=== PATIENT | female | born 1950 | race Hispanic/Latino ===

== ENCOUNTER 2016-08-18 07:08 | Day surgery (SDC) | payer MEDICARE ==
[2016-08-11 11:29] VITALS: BMI 27.1
[2016-08-18 07:34] LABS: ADD MANUAL DIFF? NO
[2016-08-18 07:40] LABS: BASO # 0.03 K/mm3 (0.0-2.0); BASO % 0.5 % (0.0-3.0); EOS # 0.2 (0.0-0.7); EOS % 3.3 % (1.5-5.0); GRAN # 4.25 (1.4-6.5); HEMATOCRIT 35.1 % (36.0-48.0); LYMPH # 0.9 (1.2-3.4); LYMPH % 14.7 % (22.0-35.0); MEAN CELL VOLUME 96.7 fL (80.0-105.0); MEAN CORPUSCULAR HEMOGLOBIN 31.1 pg (25.0-35.0); MEAN CORPUSCULAR HGB CONC 32.2 g/dl (31.0-37.0); MONO # 0.6 (0.1-0.6); MONO % 10.5 % (1.0-6.0); PLATELET COUNT 322 10^3/uL (120.0-450.0); RED CELL DISTRIBUTION WIDTH 14.5 % (11.5-14.5)
[2016-08-18 07:50] LABS: BLOOD UREA NITROGEN 30 mg/dL (7-21); CALCIUM 10.8 mg/dL (8.4-10.5); CARBON DIOXIDE 27 mmol/L (21-33); CHLORIDE 104 mmol/L (98-107); GFR AFRICAN-AMERICAN > 60; GLUCOSE,RANDOM 106 mg/dL (70-110); POTASSIUM 5.3 mmol/L (3.6-5.0); SODIUM 140 mmol/L (132-148)
[2016-08-18 07:52] LABS: INR 0.94 (0.93-1.08); PARTIAL THROMBOPLASTIN TIME 27.7 Seconds (23.7-30.8)
--- NOTE | 2016-08-18 08:14 | CP.SDSHP ---
Same Day Surgery H & P - History Proposed Procedure: Cat scan guided para aortic biopsy Pre-Op Diagnosis: Endometrial Ca. L renal cell Ca - Previous Medical/Surgical History Cardiac: Hypertension, Other (history of pneumonia) Endocrine/Metabolic: Thyroid Disease (hypothyroidism), Diabetes, Renal Disease ( Renal Ca ,treated with nephrectomy,radiation treatment,chemotherapy and proton therapy) Misc: Other (Hyperlipidemia,History of GI bleed,) Pain: 0. No Pain Comments: Recent PET scan showed some activity in the para aortic lymph nodes, pt was advised biopsy. Previous Surgical History: Bilateral cataract surgery. Hysterectomy. Cholecystectomy. L nephrectomy. Insertion of R chest port. Laser cauterization for radiation Colitis. Bilateral Knee replacement. L knee replaced again - Allergies Allergies: Allergies No Known Allergies Allergy (Verified 06/13/16 16:39) - Physical Exam General Appearance: Well nourished female Mental Status: Alert & Oriented x3 Neuro: WNL Heart: WNL Lungs: WNL - {Optional Preform as Required} Abdomen: Other (Old surgical scar noted) - Impression Impression: Endometrial Ca. L renal cell Ca - Date & Time Date: 08/18/16 Time: 08:12 Short Stay Discharge - Short Stay Discharge Admitting Diagnosis/Reason for Visit: C54.1/R59.0 Disposition: HOME/ ROUTINE Referrals: Roberto Pink MD [Primary Care Provider] -
[2016-08-18] MEDS ORDERED: Midazolam 2 MG/2 ML VIAL ONE (09:07)
[2016-08-18] MEDS ORDERED: Oxycodone/Acetaminophen 5/325 mg Tab PO PRN (09:50)
[2016-08-18] MEDS ORDERED: Sodium Chloride 0.45% 1,000 ML IV SCH (10:00)
[2016-08-18 10:25] VITALS: O2SAT 100
[2016-08-18 11:47] VITALS: BP 124/70; PULSE 80; RESP 20; TEMP 98
--- NOTE | 2016-08-22 13:40 | CT ---
PROCEDURE: CT guided left periaortic lymph node biopsy. HISTORY: History endometrial CA and renal cell CA. Persistent left periaortic adenopathy. Positive PET. Evaluate for residual malignancy. PHYSICIAN(S): Edgardo Billings MD. TECHNIQUE: The relative risks and indications of the procedure were explained to the patient and consent obtained. The patient was placed prone on the CT scanner and preliminary images through the mid abdomen obtained. Conscious sedation and monitoring were provided throughout the procedure by a nurse. Once again is noted the 2 cm soft tissue mass in the left periaortic region at the level of the nephrectomy.. A left posterior approach was selected and the area prepped and draped in the usual sterile fashion. 1% Xylocaine was used to anesthetize the skin and soft tissues. A 17-gauge guiding needle was advanced into the 2 cm left periaortic soft tissue density which was positive on PET exam. Its position was confirmed with CT. Using coaxial technique, multiple core biopsies were obtained. The postprocedure images show no evidence of significant hemorrhage. IMPRESSION: 1. CT-guided left periaortic lymph node biopsy as described above.
== END 2016-08-18 11:50 | disposition home or self-care (01) ==
LOC: SDS 07:08
PROVIDERS: ATTEND Radiology Vascular & Interventional Radiology
DX: R59.0 Localized enlarged lymph nodes (principal); C54.1 Malignant neoplasm of endometrium; C64.2 Malignant neoplasm of left kidney, except renal pelvis; E03.9 Hypothyroidism, unspecified; E11.9 Type 2 diabetes mellitus without complications; E78.5 Hyperlipidemia, unspecified; I10 Essential (primary) hypertension; Z90.49 Acquired absence of other specified parts of digestive tract; Z92.3 Personal history of irradiation; Z96.653 Presence of artificial knee joint, bilateral; Z87.01 Personal history of pneumonia (recurrent); Z90.5 Acquired absence of kidney; Z92.21 Personal history of antineoplastic chemotherapy; Z98.49 Cataract extraction status, unspecified eye; Z90.710 Acquired absence of both cervix and uterus
CPT/HCPCS: 36415; 38505; 77012; 80048; 85025; 85610; 85730; 88305; J2250; J2405; J3010; J7030

== ENCOUNTER 2017-01-03 10:57 | Day surgery (SDC) | payer MEDICARE ==
[2017-01-02 08:49] VITALS: BMI 27.4
[2017-01-03 11:32] LABS: BASO # 0.02 K/mm3 (0.0-2.0); BASO % 0.3 % (0.0-3.0); EOS # 0.1 (0.0-0.7); EOS % 1.7 % (1.5-5.0); GRAN # 5.09 (1.4-6.5); GRAN % 73.3 % (50.0-68.0); LYMPH # 1.1 (1.2-3.4); LYMPH % 15.9 % (22.0-35.0); MEAN CELL VOLUME 94.6 fl (80.0-105.0); MEAN CORPUSCULAR HEMOGLOBIN 31.8 pg (25.0-35.0); MEAN CORPUSCULAR HGB CONC 33.6 g/dl (31.0-37.0); MEAN PLATELET VOLUME 8.6 fl (7.0-11.0); MONO # 0.6 (0.1-0.6); MONO % 8.8 % (1.0-6.0); RED CELL DISTRIBUTION WIDTH 13.7 % (11.5-14.5); WHITE BLOOD COUNT 6.9 10^3/ul (4.5-11.0)
[2017-01-03 11:40] LABS: CALCIUM 10.6 mg/dL (8.4-10.5); POTASSIUM 5.1 mmol/L (3.6-5.0)
[2017-01-03 11:48] LABS: PARTIAL THROMBOPLASTIN TIME 34.1 Seconds (23.7-30.8)
[2017-01-03] MEDS ORDERED: Midazolam 2 MG/2 ML VIAL ONE (12:22)
[2017-01-03] MEDS ORDERED: Oxycodone/Acetaminophen 5/325 mg Tab PO PRN (14:07)
[2017-01-03] MEDS ORDERED: Sodium Chloride 0.45% 1,000 ML IV SCH (14:15)
[2017-01-03 14:24] VITALS: TEMP 99
[2017-01-03 17:03] VITALS: PULSE 98; RESP 18; O2SAT 99
[2017-01-03 17:04] VITALS: BP 125/63
--- NOTE | 2017-01-03 18:44 | CT ---
PROCEDURE: CT guided left periaortic lymph node biopsy. HISTORY: Metastatic renal cell carcinoma. Metastatic endometrial carcinoma. Enlarging left periaortic lymphadenopathy. Positive PET. Evaluate for metastatic disease. PHYSICIAN(S): Edgardo Billings MD. TECHNIQUE: The relative risks and indications of the procedure were explained to the patient and consent obtained. The patient was placed prone on the CT scanner and preliminary images through the mid abdomen obtained. Conscious sedation and monitoring were provided throughout the procedure by a nurse. There is a confluent 1.5 x 3.5 cm soft tissue mass adjacent to the aorta.. A left paraspinal approach was selected and the area prepped and draped in the usual sterile fashion. 1% Xylocaine was used to anesthetize the skin and soft tissues. A 17-gauge guiding needle was advanced into the 8.5 cm left periaortic lymph node.. Its position was confirmed with CT. Using coaxial technique, multiple core biopsies were obtained. The postprocedure images show no evidence of significant hemorrhage. A frozen section was reviewed by pathology and deemed adequate. IMPRESSION: 1. CT-guided left periaortic lymph node biopsy as described above. Initial frozen section was obtained and deemed adequate
== END 2017-01-03 17:00 | disposition home or self-care (01) ==
LOC: SDS 10:57
PROVIDERS: ATTEND Radiology Vascular & Interventional Radiology
DX: C77.2 Secondary and unspecified malignant neoplasm of intra-abdominal lymph nodes (principal); C54.1 Malignant neoplasm of endometrium; C64.9 Malignant neoplasm of unspecified kidney, except renal pelvis; I10 Essential (primary) hypertension; E03.9 Hypothyroidism, unspecified; Z90.5 Acquired absence of kidney; Z90.49 Acquired absence of other specified parts of digestive tract; Z90.710 Acquired absence of both cervix and uterus; Z98.42 Cataract extraction status, left eye; Z98.41 Cataract extraction status, right eye; Z96.653 Presence of artificial knee joint, bilateral; J30.2 Other seasonal allergic rhinitis
CPT/HCPCS: 36415; 38505; 77012; 80048; 85025; 85610; 85730; 88305; 88331; J1642; J2250; J2405; J3010; J7030

== ENCOUNTER 2018-04-12 11:49 | Outpatient (CLI) | payer MEDICARE | END 2018-04-12 11:50 | disposition home or self-care (01) | LOC: OPLAB 11:49 ==

== ENCOUNTER 2018-04-24 11:41 | Outpatient (CLI) | payer MEDICARE | END 2018-04-24 11:42 | disposition home or self-care (01) | LOC: OPLAB 11:41 ==

== ENCOUNTER 2018-05-07 13:10 | Outpatient (CLI) | payer MEDICARE | END 2018-05-07 13:11 | disposition home or self-care (01) | LOC: OPLAB 13:10 ==

== ENCOUNTER 2018-05-20 05:39 | Outpatient (CLI) | payer MEDICARE | END 2018-05-20 05:40 | disposition home or self-care (01) | LOC: PET-BROA 05:39 | DX: C64.1 Malignant neoplasm of right kidney, except renal pelvis (principal) ==

== ENCOUNTER 2018-05-22 13:05 | Outpatient (CLI) | payer MEDICARE | END 2018-05-22 13:06 | disposition home or self-care (01) | LOC: OPLAB 13:05 ==

== ENCOUNTER 2018-06-06 13:09 | Outpatient (CLI) | payer MEDICARE | END 2018-06-06 13:10 | disposition home or self-care (01) | LOC: OPLAB 13:09 ==

== ENCOUNTER 2018-06-20 11:44 | Outpatient (CLI) | payer MEDICARE | END 2018-06-20 11:45 | disposition home or self-care (01) | LOC: OPLAB 11:44 ==

== ENCOUNTER 2018-07-03 13:03 | Outpatient (CLI) | payer MEDICARE | END 2018-07-03 13:04 | disposition home or self-care (01) | LOC: OPLAB 13:03 ==

== ENCOUNTER → 2018-07-17 | Outpatient (CLI) | payer MEDICARE | LOC: OPLAB 13:25 ==

== ENCOUNTER 2018-07-31 12:50 | Outpatient (CLI) | payer MEDICARE | END 2018-07-31 12:51 | disposition home or self-care (01) | LOC: OPLAB 12:50 ==

== ENCOUNTER 2018-08-02 07:56 | Day surgery (SDC) | payer MEDICARE ==
[2018-07-31 10:18] VITALS: BMI 25.7
[2018-08-02] MEDS ORDERED: Propofol 10 mg/ml Inj (20 ML) ONE (09:52)
[2018-08-02] MEDS ORDERED: Sodium Chloride 0.9% 1,000 ML IV SCH (10:30)
[2018-08-02 13:32] VITALS: BP 133/60; PULSE 98; RESP 18; TEMP 98.7; O2SAT 98
== END 2018-08-02 12:30 | disposition home or self-care (01) ==
LOC: ENDO 07:56
PROVIDERS: ATTEND Internal Medicine Gastroenterology
DX: D50.9 Iron deficiency anemia, unspecified (principal); K25.9 Gastric ulcer, unspecified as acute or chronic, without hemorrhage or perforation; K29.50 Unspecified chronic gastritis without bleeding; K44.9 Diaphragmatic hernia without obstruction or gangrene; I10 Essential (primary) hypertension; E11.9 Type 2 diabetes mellitus without complications; E03.9 Hypothyroidism, unspecified
CPT/HCPCS: 43239; 82948; 88305; 88342; J2001; J2704; J7030; J7040

== ENCOUNTER → 2018-08-13 | Outpatient (CLI) | payer MEDICARE | LOC: OPLAB 12:41 ==

== ENCOUNTER 2018-08-27 13:10 | Outpatient (CLI) | payer MEDICARE | END 2018-08-27 13:11 | disposition home or self-care (01) | LOC: OPLAB 13:10 ==

== ENCOUNTER 2018-09-06 14:13 | Day surgery (SDC) | payer MEDICARE ==
[2018-08-30 12:26] VITALS: BMI 25.1
[~2018-09-06 14:13] MED LIST: Sodium Chloride 0.9% 1,000 ML IV SCH
[2018-09-06] MEDS ORDERED: Propofol 10 mg/ml Inj (20 ML) ONE (16:50)
[2018-09-06 18:17] VITALS: BP 127/65; PULSE 110; RESP 18; TEMP 98.5; O2SAT 96
== END 2018-09-06 18:47 | disposition home or self-care (01) ==
LOC: ENDO 14:13
PROVIDERS: ATTEND Internal Medicine Gastroenterology
DX: K63.5 Polyp of colon (principal); K64.0 First degree hemorrhoids; D50.9 Iron deficiency anemia, unspecified; K57.30 Diverticulosis of large intestine without perforation or abscess without bleeding; Z85.42 Personal history of malignant neoplasm of other parts of uterus; Z85.528 Personal history of other malignant neoplasm of kidney
CPT/HCPCS: 45385; 88305; J1642; J2704; J7030; J7040